=== PATIENT | female | born 1965 | race Native Hawaiian/Other Pacific Islander ===

== ENCOUNTER 2017-06-12 22:26 | Emergency (ER) | payer OTHER, BC ==
[2017-06-12 22:42] VITALS: BP 184/93; PULSE 79; RESP 18; TEMP 97.7; O2SAT 98
[2017-06-12] MEDS ORDERED: Amoxicillin-Clav 875-125 mg Tab PO STA (23:02)
[2017-06-12] MEDS ORDERED: Amoxicillin-Clav 875-125 mg Tab PO ONE (23:09)
--- NOTE | 2017-06-12 23:29 | C.PDOC ---
History Of Present Illness 51 year old female who presents to the ER after she was bit by a dog 1 hour K 12 PRINCIPAL. 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 Patient reports her tetanus is up to date. Denies active bleeding, weakness, numbness, or other injury. Time Seen by Provider: 06/12/17 22:50 Chief Complaint (Nursing): Bite History Per: Patient History/Exam Limitations: no limitations Onset/Duration Of Symptoms: Hrs Current Symptoms Are (Timing): Still Present Location Of Injury: Left: Ankle Quality Of Symptoms: Other (bite) Recent travel outside of the [place]: No - Animal Bite Description Of The Attack: Unprovoked Attack Description Of The Animal: Other (client's dog) Reports Animal Appears: Well Past Medical History Reviewed: Historical Data, Nursing Documentation, Vital Signs Vital Signs: Last Vital Signs Temp 97.7 F 06/12/17 22:36 Pulse 79 06/12/17 22:36 Resp 18 06/12/17 22:36 BP 184/93 H 06/12/17 22:36 Pulse Ox 98 06/13/17 01:31 - Medical History PMH: HTN Surgical History: No Surg Hx Family History: States: Unknown Family Hx - Social History Hx Alcohol Use: No Hx Substance Use: No - Immunization History Hx Tetanus Toxoid Vaccination: Yes Hx Influenza Vaccination: No Hx Pneumococcal Vaccination: No Review Of Systems Skin: Positive for: Other (Bite) Neurological: Negative for: Weakness, Numbness Physical Exam - Physical Exam Appears: Non-toxic, No Acute Distress Skin: Warm, Dry Head: Atraumatic, Normacephalic Oral Mucosa: Moist Extremity: Normal ROM (x4), No Tenderness, Capillary Refill (Good), No Deformity , No Swelling, Other (2 puncture wounds to posterior left ankle with mild erythema) Pulses: Left Dorsalis Pedis: Normal, Right Dorsalis Pedis: Normal Neurological/Psych: Oriented x3, Normal Speech, Normal Cognition ED Course And Treatment O2 Sat by Pulse Oximetry: 98 (Room air) Pulse Ox Interpretation: Normal Medical Decision Making Medical Decision Making: Plan: * Augmentin * Motrin On reevaluation, patient's pain has improved, will discharge home with Rx and instructions to follow up with PMD. Disposition - Disposition Referrals: Sandra Robb [Medical Doctor] - Disposition: HOME/ ROUTINE Disposition Time: 23:30 Condition: GOOD Additional Instructions: Clean the wound twice a day with soap and water. Follow up with the medical doctor within 1-2 days without fail. Return if worsened. Prescriptions: Amoxicillin/Clavulanate [Augmentin 875 MG-125 MG] 1 tab PO BID #19 tab Instructions: Animal Bite (ED) Forms: [employer] (Ugandan) - Clinical Impression Clinical Impression: Animal bite wound - Scribe Statement The provider has reviewed the documentation as recorded by the Scribkiki Swan All medical record entries made by the Efrainibkiki were at my direction and personally dictated by me. I have reviewed the chart and agree that the record accurately reflects my personal performance of the history, physical exam, medical decision making, and the department course for this patient. I have also personally directed, reviewed, and agree with the discharge instructions and disposition.
== END 2017-06-12 23:44 | disposition home or self-care (01) ==
LOC: C.ER 22:26
DX: S91.032A Puncture wound without foreign body, left ankle, initial encounter (principal); W54.0XXA Bitten by dog, initial encounter; Y92.89 Other specified places as the place of occurrence of the external cause; Y99.0 Civilian activity done for income or pay